=== PATIENT | male | born 1940 | race Caucasian/White ===

== ENCOUNTER → 2019-04-03 | Outpatient (CLI) | payer MEDICARE | LOC: M LAB 10:54 | DX: M35.3 Polymyalgia rheumatica (principal) ==

== ENCOUNTER → 2019-05-04 | Outpatient (CLI) | payer MEDICARE | LOC: M LAB 10:04 | PROVIDERS: ATTEND Internal Medicine | DX: M35.3 Polymyalgia rheumatica (principal) ==

== ENCOUNTER → 2019-06-06 | Outpatient (CLI) | payer MEDICARE | LOC: M LAB 11:49 | PROVIDERS: ATTEND Internal Medicine | DX: M35.3 Polymyalgia rheumatica (principal) ==